=== PATIENT | male | born 1955 | race Caucasian/White ===

== ENCOUNTER → 2024-02-16 12:31 | Outpatient (REF) | payer MEDICARE, BC, SELFPAY | LOC: HWRCS 12:31 | PROVIDERS: ATTENDING PHYSICIAN Internal Medicine Cardiovascular Disease; FAMILY PHYSICIAN Family Medicine | DX: I50.32 Chronic diastolic (congestive) heart failure (principal) | CPT/HCPCS: 93306 ==

== ENCOUNTER → 2024-03-16 06:24 | Day surgery (SDC) | payer MEDICARE, BC, SELFPAY ==
[2024-03-16 09:06] LABS: Glucose - Point of Care 178 mg/dl (70-99)
== END ==
LOC: GI 06:24
PROVIDERS: ATTENDING PHYSICIAN Internal Medicine Gastroenterology
DX: Z12.11 Encounter for screening for malignant neoplasm of colon (principal); K64.8 Other hemorrhoids; Z86.010 Personal history of colon polyps
CPT/HCPCS: G0105; 82962

== ENCOUNTER → 2024-08-08 07:54 | Outpatient (REF) | payer MEDICARE, BC, SELFPAY | LOC: DHCBC/DCA 07:54 | PROVIDERS: ATTENDING PHYSICIAN Student in an Organized Health Care Education/Training Program; FAMILY PHYSICIAN Family Medicine | DX: R07.9 Chest pain, unspecified (principal); I10 Essential (primary) hypertension; I48.19 Other persistent atrial fibrillation | CPT/HCPCS: 78452; 93017; A9500; J2785 ==

== ENCOUNTER → 2024-09-26 11:05 | Outpatient (REF) | payer MEDICARE, BC, SELFPAY | LOC: HWRAD 11:05 | PROVIDERS: ATTENDING PHYSICIAN Physician Assistant; FAMILY PHYSICIAN Family Medicine | DX: R10.11 Right upper quadrant pain (principal) | CPT/HCPCS: 76700 ==

== ENCOUNTER 2025-06-29 08:37 | Outpatient (RCR) | payer MEDICARE, BC, SELFPAY | END 2025-06-29 23:59 | disposition home or self-care (01) | LOC: ROT 08:37 | PROVIDERS: ATTENDING PHYSICIAN Orthopaedic Surgery Hand Surgery; FAMILY PHYSICIAN Internal Medicine | DX: M20.032 Swan-neck deformity of left finger(s) (principal); Z73.6 Limitation of activities due to disability; M79.645 Pain in left finger(s) | CPT/HCPCS: 97760 ==

== ENCOUNTER → 2025-09-03 12:31 | Outpatient (REF) | payer MEDICARE, BC, SELFPAY | LOC: HWRAD 12:31 | PROVIDERS: ATTENDING PHYSICIAN Internal Medicine Hematology & Oncology; FAMILY PHYSICIAN Internal Medicine | DX: D73.1 Hypersplenism (principal); N18.31 Chronic kidney disease, stage 3a; C90.00 Multiple myeloma not having achieved remission | CPT/HCPCS: 76705 ==